=== PATIENT | female | born 1975 | race Caucasian/White ===

== ENCOUNTER 2020-06-23 15:04 | Emergency (ER) | payer OTHER ==
[~2020-06-23] VITALS: Ht 165.1 cm; Wt 72.7 kg
[2020-06-23 15:24] VITALS: BP 133/94
[2020-06-23] MEDS ORDERED: NEOSPORIN OINT. PKT 1 PACKET ONE (16:14)
== END 2020-06-23 16:37 | disposition home or self-care (01) ==
LOC: ED 16:30
DX: S90.122A Contusion of left lesser toe(s) without damage to nail, initial encounter (principal); M79.89 Other specified soft tissue disorders; X58.XXXA Exposure to other specified factors, initial encounter; Y93.89 Activity, other specified; Y92.89 Other specified places as the place of occurrence of the external cause; Y99.8 Other external cause status
CPT/HCPCS: 99283